=== PATIENT | female | born 1995 | race Two or more races ===

== ENCOUNTER 2023-03-13 14:10 | Emergency (ER) | payer BC, OTHER ==
[2023-03-13 14:24] VITALS: BP 125/79; PULSE 71; RESP 18; TEMP 98.3; BMI 29.9
[2023-03-13] MEDS ORDERED: ALBUTEROL SO4 2.5/IPRATROPIUM 0.5 INH SOL 3 ML VIAL.NEB. NEB ONE ×2 (14:44→14:46)
[2023-03-13 15:20] LABS: THROAT:GRP A STREP NOT DETECTED (NOTDETECTED)
== END 2023-03-13 15:54 | disposition home or self-care (01) ==
LOC: JERFT 14:10
PROC: 3E0F7GC Introduction of Other Therapeutic Substance into Respiratory Tract, Via Natural or Artificial Opening (ICD-10-PCS; principal; 2023-03-13)
DX: R07.89 Other chest pain (principal); R09.81 Nasal congestion; J20.9 Acute bronchitis, unspecified; F17.200 Nicotine dependence, unspecified, uncomplicated; Z20.822 Contact with and (suspected) exposure to COVID-19
CPT/HCPCS: 0241U-QW; 71046-TC-FY; 87651; 99284-25

== ENCOUNTER 2023-12-04 08:06 | Emergency (ER) | payer SELFPAY ==
[2023-12-04 08:13] VITALS: BP 126/82; PULSE 62; RESP 24; TEMP 98.3; BMI 29.7
[2023-12-04 08:36] LABS: URINE APPEARANCE CLEAR; URINE BILIRUBIN NEGATIVE (NEGATIVE); URINE COLOR YELLOW; URINE GLUCOSE (UA) NEGATIVE (NEGATIVE); URINE KETONE NEGATIVE (NEGATIVE); URINE LEUK ESTERASE NEGATIVE (NEGATIVE); URINE NITRITE NEGATIVE (NEGATIVE); URINE PROTEIN NEGATIVE (NEGATIVE); URINE UROBILINOGEN 0.2 mg/dL (0.2-1.0)
[2023-12-04] MEDS ORDERED: predniSONE 20 MG TABLET (UD) ONE (09:13)
[2023-12-04] MEDS ORDERED: ALBUTEROL SO4 2.5/IPRATROPIUM 0.5 INH SOL 3 ML VIAL.NEB. NEB ONE (09:13)
[2023-12-04] MEDS: predniSONE 20 MG TABLET (UD) PO ONE (09:20)
[2023-12-04] MEDS: ALBUTEROL SO4 2.5/IPRATROPIUM 0.5 INH SOL 3 ML VIAL.NEB. NEB ONE (09:20)
== END 2023-12-04 10:15 | disposition home or self-care (01) ==
LOC: JER 08:06
PROC: 3E0F7GC Introduction of Other Therapeutic Substance into Respiratory Tract, Via Natural or Artificial Opening (ICD-10-PCS; principal; 2023-12-04)
DX: J40 Bronchitis, not specified as acute or chronic (principal); R05.9 Cough, unspecified; R11.10 Vomiting, unspecified
CPT/HCPCS: 0241U-QW; 71046-TC-FY; 81003; 84703; 87086; 99284-25